=== PATIENT | female | born 1960 | race Two or more races ===

== ENCOUNTER 2021-07-22 14:12 | Emergency (ER) | payer OTHER ==
[~2021-07-22] VITALS: Ht 160 cm; Wt 47.9 kg
[2021-07-22 15:16] VITALS: BP 150/88
[2021-07-22 15:53] LABS: Urine Bacteria NONE SEEN /hpf (None Seen); Urine Blood Negative /uL (Negative); Urine Mucus FEW (None Seen); Urine Specific Gravity 1.018 (1.001-1.035); Urine WBC 2 /hpf (0 - 5)
[2021-07-22] MEDS ORDERED: CIPR-173 PO (16:45)
[2021-07-22] MEDS ORDERED: METH4PAK PO (16:45)
[2021-07-22] MEDS ORDERED: ALBU108A5 IN (16:45)
== END 2021-07-22 16:49 | disposition home or self-care (01) ==
LOC: ER 14:12
DX: N39.0 Urinary tract infection, site not specified (principal); J44.9 Chronic obstructive pulmonary disease, unspecified; F17.210 Nicotine dependence, cigarettes, uncomplicated; Z79.2 Long term (current) use of antibiotics; Z79.899 Other long term (current) drug therapy
CPT/HCPCS: 71046; 81001

== ENCOUNTER 2021-10-18 14:04 | Emergency (ER) | payer OTHER ==
[~2021-10-18] VITALS: Ht 160 cm; Wt 47.6 kg
[~2021-10-18 14:04] MED LIST: ALBU108A5 IN; CIPR-173 PO; METH4PAK PO
[2021-10-18 14:13] VITALS: BP 123/79
[2021-10-18 15:04] LABS: Basophils # (auto) 0.2 10 ^3/uL (0-0.2); Basophils % (auto) 2.8 % (0.0-2.0); Eosinophils # (auto) 0.2 10 ^3/uL (0-0.8); Hematocrit 45.7 % (36.0-46.0); Hemoglobin 15.1 g/dL (12.2-16.2); Lymphocytes # (auto) 3.1 10 ^3/uL (0.4-5.4); Lymphocytes % (auto) 44.9 % (10.0-50.0); Mean Corpuscular Hgb Conc. 33.1 g/dL (32.0-36.0); Mean Corpuscular Volume 90.8 fL (80.0-100.0); Monocytes # (auto) 0.3 10 ^3/uL (0-1.3); Neutrophils # (auto) 3.1 10 ^3/uL (1.6-8.6); Neutrophils % (auto) 45.3 % (37.0-80.0); Nucleated Red Blood Cells % 0.1 %; Red Blood Cells 5.04 10^6/uL (4.0-5.20); White Blood Cell 6.8 10^3/uL (4.4-10.8)
[2021-10-18 16:32] LABS: Alkaline Phosphatase 102 U/L (45-117); Anion Gap 7 (5-15); BUN/Creatinine Ratio 14.3; Blood Urea Nitrogen 18 mg/dL (7-18); Carbon Dioxide 23 mmol/L (21-32); Chloride 108 mmol/L (98-107); GFR African American 56 mL/min; GFR Non-African American 46 mL/min; Glucose 154 mg/dL (74-106); Potassium 4.3 mmol/L (3.5-5.1); Sodium 138 mmol/L (136-145)
[2021-10-18 16:33] LABS: Alanine Aminotransferase 32 U/L (13-56); Albumin 3.3 g/dL (3.4-5.0); Aspartate Aminotransferase 22 U/L (15-37); Bilirubin, Total 0.2 mg/dL (0.2-1.0); Calcium 8.6 mg/dL (8.5-10.1); Total Protein 7.7 g/dL (6.4-8.2)
== END 2021-10-18 19:01 | disposition left against medical advice (07) ==
LOC: ER 14:04
DX: R05.9 Cough, unspecified (principal); R06.00 Dyspnea, unspecified; J44.9 Chronic obstructive pulmonary disease, unspecified; F17.210 Nicotine dependence, cigarettes, uncomplicated; Z76.0 Encounter for issue of repeat prescription
CPT/HCPCS: 36415; 71046; 80053; 84484; 85025; 93005

== ENCOUNTER 2021-10-19 09:06 | Emergency (ER) | payer OTHER ==
[~2021-10-19] VITALS: Ht 160 cm; Wt 48.5 kg
[2021-10-19 09:14] VITALS: BP 103/26
[2021-10-19] MEDS ORDERED: IPRATROPIUM BROM 0.5 MG/2.5ML INH SOL NEB ONE (09:30)
[2021-10-19] MEDS ORDERED: ALBUTEROL SULF 2.5 MG/0.5ML(0.5%) NEB SOLN NEB ONE (09:30)
[2021-10-19] MEDS ORDERED: methylPREDNISolone SOD SUCC 125 MG/2 ML VL IV ONE (09:30)
== END 2021-10-19 09:26 | disposition left against medical advice (07) ==
LOC: ER 09:06
DX: J44.1 Chronic obstructive pulmonary disease with (acute) exacerbation (principal); R06.03 Acute respiratory distress; F17.210 Nicotine dependence, cigarettes, uncomplicated
CPT/HCPCS: 99291

== ENCOUNTER 2021-10-19 19:01 | Inpatient (IN) | payer OTHER ==
[~2021-10-19] VITALS: Ht 160 cm; Wt 51.0 kg
[2021-10-19 19:28] LABS: Basophils # (auto) 0.2 10 ^3/uL (0-0.2); Basophils % (auto) 2.4 % (0.0-2.0); Eosinophils # (auto) 0.2 10 ^3/uL (0-0.8); Eosinophils % (auto) 3.1 % (0.0-7.0); Hematocrit 46.1 % (36.0-46.0); Hemoglobin 15.5 g/dL (12.2-16.2); Lymphocytes # (auto) 4.1 10 ^3/uL (0.4-5.4); Lymphocytes % (auto) 52.6 % (10.0-50.0); Mean Corpuscular Hemoglobin 30.3 pg (28.0-32.0); Mean Corpuscular Hgb Conc. 33.6 g/dL (32.0-36.0); Mean Corpuscular Volume 90.2 fL (80.0-100.0); Monocytes # (auto) 0.5 10 ^3/uL (0-1.3); Monocytes % (auto) 6.6 % (0.0-12.0); Neutrophils # (auto) 2.7 10 ^3/uL (1.6-8.6); Neutrophils % (auto) 35.3 % (37.0-80.0); Nucleated Red Blood Cells % 0.1 %; Red Blood Cells 5.11 10^6/uL (4.0-5.20); Red Cell Distribution Width 14.6 % (11.8-14.3); White Blood Cell 7.7 10^3/uL (4.4-10.8)
[2021-10-19] MEDS ORDERED: ALBUTEROL SULF 2.5 MG/0.5ML(0.5%) NEB SOLN NEB ONE (19:30)
[2021-10-19 19:50] LABS: Partial Thromboplastin Time 30.4 sec (23.6-33.0)
[2021-10-19 19:57] LABS: Albumin 3.9 g/dL (3.4-5.0); BUN/Creatinine Ratio 12.8; Calcium 9.4 mg/dL (8.5-10.1); Magnesium 2.4 mg/dL (1.6-2.6); Potassium 4.2 mmol/L (3.5-5.1)
[2021-10-19 20:02] LABS: Bilirubin, Total 0.4 mg/dL (0.2-1.0); Total Protein 8.5 g/dL (6.4-8.2)
[2021-10-19] MEDS ORDERED: methylPREDNISolone SOD SUCC 125 MG/2 ML VL IV ONE (22:00)
[2021-10-19] MEDS ORDERED: cefTRIAXone 1GM/50ML D5W 50 ML IV ONE (22:30)
[2021-10-19] MEDS ORDERED: AZITHROMYCIN 250 MG TAB PO ONE (22:30)
[2021-10-19] MEDS ORDERED: MORPHINE SULFATE INJECTION 2 MG/ML SYRG IV PRN (23:00)
[2021-10-19] MEDS ORDERED: TEMAZEPAM 15 MG CAP PO PRN (23:00)
[2021-10-19] MEDS ORDERED: ONDANSETRON HCL 4 MG/2 ML VIAL IV PRN (23:00)
[2021-10-19] MEDS ORDERED: IPRATROPIUM BROM 0.5 MG/2.5ML INH SOL NEB PRN (23:00)
[2021-10-19] MEDS ORDERED: ACETAMINOPHEN 325 MG TAB PO PRN (23:00)
[2021-10-19] MEDS ORDERED: ALBUTEROL SULF 2.5 MG/0.5ML(0.5%) NEB SOLN NEB PRN (23:00)
[2021-10-19] MEDS ORDERED: NITROGLYCERIN 0.4 MG SL TAB SL PRN (23:00)
[2021-10-20] VITALS (7 sets, daily range): BP systolic 131–144; BP diastolic 76–105
[2021-10-20 09:10] LABS: Basophils # (auto) 0 10 ^3/uL (0-0.2); Basophils % (auto) 0.8 % (0.0-2.0); Eosinophils # (auto) 0 10 ^3/uL (0-0.8); Eosinophils % (auto) 0.1 % (0.0-7.0); Hematocrit 48.6 % (36.0-46.0); Hemoglobin 16.1 g/dL (12.2-16.2); Lymphocytes # (auto) 2.1 10 ^3/uL (0.4-5.4); Lymphocytes % (auto) 40.4 % (10.0-50.0); Mean Corpuscular Hemoglobin 30.3 pg (28.0-32.0); Mean Corpuscular Hgb Conc. 33.2 g/dL (32.0-36.0); Mean Corpuscular Volume 91.2 fL (80.0-100.0); Monocytes # (auto) 0.2 10 ^3/uL (0-1.3); Monocytes % (auto) 4.6 % (0.0-12.0); Neutrophils # (auto) 2.8 10 ^3/uL (1.6-8.6); Neutrophils % (auto) 54.1 % (37.0-80.0); Nucleated Red Blood Cells % 0.1 %; Red Blood Cells 5.33 10^6/uL (4.0-5.20); White Blood Cell 5.2 10^3/uL (4.4-10.8)
[2021-10-20 09:33] LABS: Anion Gap 5 (5-15); Blood Urea Nitrogen 16 mg/dL (7-18); Calcium 9.2 mg/dL (8.5-10.1); Carbon Dioxide 33 mmol/L (21-32); Chloride 104 mmol/L (98-107); Potassium 4.5 mmol/L (3.5-5.1); Sodium 142 mmol/L (136-145)
[2021-10-20 09:37] LABS: BUN/Creatinine Ratio 13.6; GFR African American 60 mL/min; GFR Non-African American 50 mL/min; Glucose 108 mg/dL (74-106)
[2021-10-20] MEDS ORDERED: methylPREDNISolone SOD SUCC 125 MG/2 ML VL IV SCH (10:00)
[2021-10-20] MEDS ORDERED: ENOXAPARIN SOD 40 MG/0.4 ML SYRINGE SC SCH (10:00)
[2021-10-20] MEDS ORDERED: ALBUTEROL SULF 2.5 MG/0.5ML(0.5%) NEB SOLN NEB PRN (12:30)
[2021-10-20] MEDS ORDERED: IPRATROPIUM BROM 0.5 MG/2.5ML INH SOL NEB PRN (12:30)
[2021-10-20] MEDS ORDERED: SODIUM CHLORIDE 0.9% 1,000 ML IV ONE (12:30)
[2021-10-20] MEDS: BUDESONIDE (INHALATION) 0.5 MG/2 ML NEB NEB SCH (18:01)
[2021-10-20] MEDS: ALBUTEROL SULF 2.5 MG/0.5ML(0.5%) NEB SOLN NEB SCH ×2 (18:01→23:27)
[2021-10-20] MEDS: IPRATROPIUM BROM 0.5 MG/2.5ML INH SOL NEB SCH ×2 (18:01→23:27)
[2021-10-20] MEDS: ENOXAPARIN SOD 40 MG/0.4 ML SYRINGE SC SCH (18:36)
[2021-10-20] MEDS: methylPREDNISolone SOD SUCC 40 MG/ML VL IV SCH (22:09)
[2021-10-20] MEDS: DOXYCYCLINE 100 MG TAB/CAP PO SCH (22:09)
[2021-10-21] VITALS (7 sets, daily range): BP systolic 132–158; BP diastolic 87–103
[2021-10-21] MEDS: BUDESONIDE (INHALATION) 0.5 MG/2 ML NEB NEB SCH ×2 (07:03→18:08)
[2021-10-21] MEDS: ALBUTEROL SULF 2.5 MG/0.5ML(0.5%) NEB SOLN NEB SCH ×3 (07:03→18:07)
[2021-10-21] MEDS: IPRATROPIUM BROM 0.5 MG/2.5ML INH SOL NEB SCH ×3 (07:03→18:07)
[2021-10-21] MEDS: methylPREDNISolone SOD SUCC 40 MG/ML VL IV SCH (11:12)
[2021-10-21] MEDS: DOXYCYCLINE 100 MG TAB/CAP PO SCH ×2 (11:12→23:01)
[2021-10-21] MEDS: ENOXAPARIN SOD 40 MG/0.4 ML SYRINGE SC SCH (11:18)
[2021-10-21 20:14] LABS: Urine Bacteria NONE SEEN /hpf (None Seen); Urine Blood Negative /uL (Negative); Urine Specific Gravity 1.019 (1.001-1.035); Urine WBC <1 /hpf (0 - 5)
[2021-10-21 20:38] LABS: Alcohol, Urine < 3.0 mg/dL (0-10); Amphetamine Screen, Urine NEGATIVE (NEGATIVE); Barbiturate Scree,Urine NEGATIVE (NEGATIVE); Benzodiazephine Screen, Urine NEGATIVE (NEGATIVE); Cannabinoid Screen, Urine NEGATIVE (NEGATIVE); Cocaine Screen, Urine POSITIVE (NEGATIVE); Opiate Scree,Urine NEGATIVE (NEGATIVE); Phencyclidine Screen, Urine NEGATIVE (NEGATIVE)
[2021-10-22] MEDS: IPRATROPIUM BROM 0.5 MG/2.5ML INH SOL NEB SCH ×4 (00:10→18:49)
[2021-10-22] MEDS: ALBUTEROL SULF 2.5 MG/0.5ML(0.5%) NEB SOLN NEB SCH ×4 (00:10→18:49)
[2021-10-22 05:00] VITALS: BP 132/97
[2021-10-22] MEDS: BUDESONIDE (INHALATION) 0.5 MG/2 ML NEB NEB SCH ×2 (06:23→18:49)
[2021-10-22 09:00] VITALS: BP 132/71
[2021-10-22] MEDS: ENOXAPARIN SOD 40 MG/0.4 ML SYRINGE SC SCH (09:40)
[2021-10-22] MEDS: DOXYCYCLINE 100 MG TAB/CAP PO SCH ×2 (09:40→21:02)
[2021-10-22] MEDS: methylPREDNISolone SOD SUCC 40 MG/ML VL IV SCH ×2 (09:40→10:00)
[2021-10-22 13:00] VITALS: BP 125/96
[2021-10-22 17:00] VITALS: BP 121/89
[2021-10-23] MEDS: IPRATROPIUM BROM 0.5 MG/2.5ML INH SOL NEB SCH ×3 (00:05→11:22)
[2021-10-23] MEDS: ALBUTEROL SULF 2.5 MG/0.5ML(0.5%) NEB SOLN NEB SCH ×3 (00:05→11:22)
[2021-10-23 05:00] VITALS: BP 140/104
[2021-10-23] MEDS: BUDESONIDE (INHALATION) 0.5 MG/2 ML NEB NEB SCH ×2 (06:05→11:21)
[2021-10-23 08:00] VITALS: BP 125/92
[2021-10-23 09:00] VITALS: BP 125/92
[2021-10-23] MEDS ORDERED: PRED20TA2 PO (09:44)
[2021-10-23] MEDS ORDERED: DOXY-340 PO (09:44)
[2021-10-23] MEDS: DOXYCYCLINE 100 MG TAB/CAP PO SCH (10:40)
[2021-10-23] MEDS: methylPREDNISolone SOD SUCC 40 MG/ML VL IV SCH (10:40)
[2021-10-23] MEDS: ENOXAPARIN SOD 40 MG/0.4 ML SYRINGE SC SCH (10:41)
[2021-10-23 10:45] VITALS: BP 125/92
== END 2021-10-23 12:40 | disposition home or self-care (01) | DRG 140 ==
LOC: ER 19:01 → TELE 22:47 → TELE-EAST 23:49 → EAST 10-21 02:10
PROVIDERS: ADMIT Nurse Practitioner; ATTEND Internal Medicine
DX: J44.1 Chronic obstructive pulmonary disease with (acute) exacerbation (principal); J96.21 Acute and chronic respiratory failure with hypoxia; F12.90 Cannabis use, unspecified, uncomplicated; F14.10 Cocaine abuse, uncomplicated; F17.210 Nicotine dependence, cigarettes, uncomplicated; Z59.01 Sheltered homelessness; Z20.822 Contact with and (suspected) exposure to COVID-19
CPT/HCPCS: 36415; 71045; 73130; 80048; 80053; 80307; 81001; 83735; 83880; 84484; 85025; 85379; 85610; 85730; 93005; 93306; 94640; 94644; 96365; 96375; G0378; J0696

== ENCOUNTER 2023-09-24 00:12 | Inpatient (IN) | payer MEDICAID, OTHER ==
[~2023-09-24] VITALS: Ht 160 cm; Wt 46.3 kg
[~2023-09-24 00:12] MED LIST changes: -CIPR-173 PO; +DOXY1CAP57 PO; -METH4PAK PO; +PRED20TA2 PO
[2023-09-24] MEDS: ALBUTEROL SULF 2.5 MG/0.5ML(0.5%) NEB SOLN NEB ONE (01:06)
[2023-09-24] MEDS: IPRATROPIUM BROM 0.5 MG/2.5ML INH SOL NEB ONE (01:06)
[2023-09-24 01:15] LABS: Basophils # (auto) 0 10 ^3/uL (0-0.2); Basophils % (auto) 0.6 % (0.0-2.0); Eosinophils # (auto) 0.1 10 ^3/uL (0-0.8); Eosinophils % (auto) 1.1 % (0.0-7.0); Hematocrit 57.4 % (36.0-46.0); Hemoglobin 18.6 g/dL (12.2-16.2); Lymphocytes # (auto) 3.2 10 ^3/uL (0.4-5.4); Lymphocytes % (auto) 43.7 % (10.0-50.0); Mean Corpuscular Hemoglobin 31.2 pg (28.0-32.0); Mean Corpuscular Hgb Conc. 32.5 g/dL (32.0-36.0); Mean Corpuscular Volume 96.2 fL (80.0-100.0); Monocytes # (auto) 0.4 10 ^3/uL (0-1.3); Monocytes % (auto) 5.5 % (0.0-12.0); Neutrophils # (auto) 3.5 10 ^3/uL (1.6-8.6); Neutrophils % (auto) 49.1 % (37.0-80.0); Nucleated Red Blood Cells % 0.1 %; Red Blood Cells 5.97 10^6/uL (4.0-5.20); Red Cell Distribution Width 15.9 % (11.8-14.3); White Blood Cell 7.2 10^3/uL (4.4-10.8)
[2023-09-24 01:27] LABS: Alanine Aminotransferase 26 U/L (7-40); Albumin 4.6 g/dL (3.2-4.8); Alkaline Phosphatase 82 U/L (46-116); Anion Gap 8 (5-15); Aspartate Aminotransferase 26 U/L (13-40); BUN/Creatinine Ratio 11.4 (10.0-20.0); Bilirubin, Total 0.6 mg/dL (0.2-1.0); Blood Urea Nitrogen 14 mg/dL (9-23); Calcium 10.2 mg/dL (8.7-10.4); Carbon Dioxide 26 mmol/L (20-30); Chloride 98 mmol/L (98-107); Glucose 60 mg/dL (74-106); Potassium 3.9 mmol/L (3.5-5.1); Sodium 132 mmol/L (136-145)
[2023-09-24 01:28] LABS: Total Protein 8.1 g/dL (5.7-8.2)
[2023-09-24 02:37] LABS: INR 1.06 (0.9-1.15); Partial Thromboplastin Time 29.6 SEC (24.5-34.5); Prothrombin Time 11.1 sec (9.3-11.8)
[2023-09-24] MEDS ORDERED: ONDANSETRON HCL 4 MG/2 ML VIAL IV PRN (05:00)
[2023-09-24] MEDS ORDERED: ALBUTEROL SULF 2.5 MG/0.5ML(0.5%) NEB SOLN NEB PRN (05:00)
[2023-09-24] MEDS ORDERED: IPRATROPIUM BROM 0.5 MG/2.5ML INH SOL NEB PRN (05:00)
[2023-09-24] MEDS ORDERED: TEMAZEPAM 15 MG CAP PO PRN (05:00)
[2023-09-24] MEDS ORDERED: ACETAMINOPHEN 325 MG TAB PO PRN (05:00)
[2023-09-24] MEDS ORDERED: DEXTROSE (50%) 50ML SYRG IV PRN (05:00)
[2023-09-24] MEDS: methylPREDNISolone SOD SUCC 125 MG/2 ML VL IV ONE (06:41)
[2023-09-24] MEDS: InsuLIN REG 1unit/0.01ml Soln (100units/ml) SC SCH (06:42)
[2023-09-24] MEDS: ACCU-CHEK COMFORT CURVE STRIP VI SCH (06:42)
[2023-09-24] MEDS: levoFLOXacin 500MG 100 ML IV ONE (06:42)
[2023-09-24] MEDS: cefTRIAXone 1GM/50ML D5W 50 ML IV SCH (09:19)
[2023-09-24 09:29] VITALS: RESP 20; O2SAT 93
[2023-09-24 09:35] VITALS: O2SAT 92
[2023-09-24] MEDS: amLODIPine BESYLATE 5 MG TAB PO SCH (10:00)
[2023-09-24] MEDS: AZITHROMYCIN 500MG/ 250ML 250 ML IV SCH (11:18)
[2023-09-24 14:13] VITALS: BP 107/71; PULSE 95; RESP 14; TEMP 98.2; O2SAT 96
[2023-09-24] MEDS ORDERED: IPR002IS NEB (14:31)
[2023-09-24] MEDS ORDERED: DOXY100C4 PO (14:31)
[2023-09-24] MEDS ORDERED: ALB5IS NEB (14:31)
[2023-09-24 17:53] VITALS: BP 107/71; TEMP 36.8
== END 2023-09-24 18:47 | disposition home or self-care (01) | DRG 140 ==
LOC: ER 00:12 → EDBD 00:12 → OVERFLOW 04:54
PROVIDERS: ADMIT Nurse Practitioner; ATTEND Nurse Practitioner Acute Care
DX: J44.0 Chronic obstructive pulmonary disease with (acute) lower respiratory infection (principal); J96.21 Acute and chronic respiratory failure with hypoxia; J15.69 Pneumonia due to other Gram-negative bacteria; J90 Pleural effusion, not elsewhere classified; F17.210 Nicotine dependence, cigarettes, uncomplicated; J15.9 Unspecified bacterial pneumonia; J44.1 Chronic obstructive pulmonary disease with (acute) exacerbation; E11.9 Type 2 diabetes mellitus without complications; I10 Essential (primary) hypertension; F14.10 Cocaine abuse, uncomplicated
CPT/HCPCS: 36415; 71045; 80053; 82962; 83880; 84484; 85025; 85379; 85610; 85730; 93005; 94640; G0378; J1815; J1956